=== PATIENT | female | born 1965 | race Caucasian/White ===

== ENCOUNTER 2019-10-19 16:12 | Emergency (ER) | payer SELFPAY ==
[2019-10-19 16:14] VITALS: BP 177/100; PULSE 101; RESP 17; TEMP 36.8; O2SAT 97; BMI 28.3
--- NOTE | 2019-10-19 16:27 | CTR_ITS ---
PROCEDURE INFORMATION: Exam: CT Maxillofacial Without Contrast Exam date and time: 10/19/2019 4:52 PM Age: 54 years old Clinical indication: Pain; Headache and other: RT eye pressure; Patient HX: RT side visual disturbance. Dizzy. INFANTE; Additional info: Sinusitis TECHNIQUE: Imaging protocol: Computed tomography images of the face without contrast. Total DLP: 442.13 mGy-cm Radiation optimization: All CT scans at this facility use at least one of these dose optimization techniques: automated exposure control; mA and/or kV adjustment per patient size (includes targeted exams where dose is matched to clinical indication); or iterative reconstruction. COMPARISON: No relevant prior studies available. FINDINGS: Orbits: Orbits are normal. Globes are unremarkable. Bones/joints: No acute fracture. Sinuses: There is a mucus retention cyst within the right maxillary sinus. Mastoid air cells: The mastoid air cells are clear. Soft tissues: Unremarkable. CT/CT sinus wo con* [id number] IMPRESSION: No acute abnormality. Radiation Dose CTDIVOL = (mGy): DLP = 442.13 (mGy-cm)
--- NOTE | 2019-10-19 16:27 | CTR_ITS ---
PROCEDURE INFORMATION: Exam: CT Head Without Contrast Exam date and time: 10/19/2019 4:52 PM Age: 54 years old Clinical indication: Pain; Headache not specified; Patient HX: Dizziness. Red eye- right TECHNIQUE: Imaging protocol: Computed tomography of the head without contrast. Total DLP: 753.64 mGy-cm Radiation optimization: All CT scans at this facility use at least one of these dose optimization techniques: automated exposure control; mA and/or kV adjustment per patient size (includes targeted exams where dose is matched to clinical indication); or iterative reconstruction. COMPARISON: No relevant prior studies available. FINDINGS: Brain: No acute intracranial hemorrhage, cerebral edema, or midline shift. Ventricles: No hydrocephalus. Bones/joints: No acute fracture. Sinuses: No acute sinusitis. Mastoid air cells: Visualized mastoid air cells are well aerated. Soft tissues: Unremarkable. CT/CT head wo con* [id number] IMPRESSION: No acute intracranial abnormality. Radiation Dose CTDIVOL = (mGy): DLP = 753.64 (mGy-cm)
--- NOTE | 2019-10-19 16:28 | ED_ITS ---
HPI - Neuro Symptoms/Deficit General: Chief Complaint: Neuro Symptoms/Deficit Stated Complaint: Right eye injury Time Seen by Provider: 10/19/19 16:14 History of Present Illness: HPI Narrative: Patient states that 1-2 days ago she bent over and suddenly felt a severe sharp pain in her right eye. The pain has been constant since that time. She does not complain of vision loss. She does have a conjunctival hemorrhage on the right. Patient states that she feels like there is a severe amount of pressure in the right side of her head Onset (ago): day(s) Review of Systems General: Reports: 10 or more systems reviewed and unremarkable except in HPI and below Eyes: Reports: eye discomfort and eye redness Neuro: Reports: lack of coordination PFSH ED PFSH: Social History Smoking and tobacco status: never smoked Physical Exam HENMT: COMMON NORMALS: normocephalic, head/scalp atraumatic, hearing grossly normal bilaterally and external nose normal HEAD & SCALP: normocephalic and atraumatic FACE & SINUS: sinus tenderness NOSE: external nose normal MOUTH: oral and palatal mucosa normal Eye: COMMON NORMALS: PERRL and EOMs intact bilaterally CONJUNCTIVA: Yes conjunctiva abnormal positive right subconjunctival hemorrhage PUPIL: Yes PERRL Course Vital Signs: Vital signs: Vital Signs Temperature 98.3 F 10/19/19 16:14 Pulse Rate 101 H 10/19/19 16:14 Respiratory Rate 17 10/19/19 16:14 Blood Pressure 177/100 10/19/19 16:14 Pulse Oximetry 97 10/19/19 16:14 MDM - Neuro Symptoms/Deficit MDM Narrative: Medical decision making narrative: CT scan of the head reveals no acute intracranial abnormalities. CT sinuses reveals a large retention cyst in the right maxillary sinus. Discharge Plan Discharge Patient Disposition: Home, Self-Care Clinical Impression: Mucous retention cyst of maxillary sinus, Subconjunctival hemorrhage of right eye Hypertension Qualifiers: Hypertension type: essential hypertension Qualified Code(s): I10 - Essential (primary) hypertension Condition: Stable Prescriptions: New Bactrim DS 800-160 mg tablet 1 tab PO BID 14 Days Qty: 28 RF: 0 prednisone 10 mg tablets,dose pack See Rx Instructions .ROUTE .COMPLEX Qty: 21 RF: 0 No Action Tylenol 325 mg Tablet 325 mg PO PRN RF: 0 Aspir-81 81 mg Tablet,Delayed Release (Dr/Ec) 81 mg PO DAILY RF: 0 Probiotic 4 cap PO BEDTIME RF: 0 Discharge Orders: Discharge Order (Routine); Ordered 10/19/19 Ordered By: Shai Moe Referrals: [facility] [Other] Aidan Tello NP [Primary Care Provider] - Patient Instructions: Sinusitis (ED) Coding Level of Care Code ED Prints And Drawings Curator for Chg Fwd Exam Expanded Problem Focused
--- NOTE | 2019-10-19 16:39 | PC.NURSE ---
Pt transported to CT via stretcher with furniture repair technician.
[2019-10-19 17:44] VITALS: BP 127/85; PULSE 95; RESP 17; O2SAT 95
== END 2019-10-19 17:44 | disposition home or self-care (01) ==
PROVIDERS: Emergency Provider Family Medicine; PCP Nurse Practitioner Family
DX: J34.1 Cyst and mucocele of nose and nasal sinus (principal); H11.31 Conjunctival hemorrhage, right eye; I10 Essential (primary) hypertension; H57.11 Ocular pain, right eye; Z79.82 Long term (current) use of aspirin
CPT/HCPCS: 12345; 70450; 70486; 99281

== ENCOUNTER → 2021-05-16 18:25 | Outpatient (BNVA) | payer SELFPAY | PROVIDERS: PCP Nurse Practitioner Family; Visit Provider Nurse Practitioner | DX: R39.9 Unspecified symptoms and signs involving the genitourinary system (principal) | CPT/HCPCS: 81000 ==

== ENCOUNTER → 2022-02-16 15:18 | Outpatient (BNVA) | payer SELFPAY | PROVIDERS: Visit Provider Family Medicine Adult Medicine | DX: N39.0 Urinary tract infection, site not specified (principal); N32.89 Other specified disorders of bladder; R31.9 Hematuria, unspecified; M54.50 Low back pain, unspecified | CPT/HCPCS: 81000 ==

== ENCOUNTER → 2022-03-27 15:01 | Outpatient (BNVA) | payer SELFPAY | PROVIDERS: PCP Family Medicine; Visit Provider Emergency Medicine | DX: R30.0 Dysuria (principal); N30.01 Acute cystitis with hematuria | CPT/HCPCS: 81000 ==

== ENCOUNTER → 2022-04-05 09:16 | Outpatient (BNVA) | payer SELFPAY | PROVIDERS: PCP Family Medicine Adult Medicine; Visit Provider Family Medicine Adult Medicine | DX: R30.0 Dysuria (principal); M54.50 Low back pain, unspecified; R31.9 Hematuria, unspecified; R53.83 Other fatigue; N39.3 Stress incontinence (female) (male); Z76.89 Persons encountering health services in other specified circumstances | CPT/HCPCS: 81000; 86592; 87491; 87591 ==

== ENCOUNTER 2022-05-05 20:28 | Emergency (ER) | payer SELFPAY ==
[2022-05-05 20:30] VITALS: BP 135/68; PULSE 83; RESP 16; TEMP 36.6; O2SAT 95; BMI 28.5
--- NOTE | 2022-05-05 20:49 | ED_ITS ---
HPI - Allergic Reaction General: Chief complaint: Allergic Reaction Stated complaint: possible spider bite Time Seen by Provider: 05/05/22 20:47 History of Present Illness: HPI narrative: Patient came in for concern of a small black spider bite to the right po stauricular area of the neck. Patient felt some tightening in her throat and some itching and came in to be evaluated. Patient had taken Benadryl on the way into the ER and felt better. Patient appears nontoxic. Patient appears in no pain. Review of Systems Const: Denies: fever(s) Card: Denies: chest pain Resp: Denies: dyspnea Skin/Breast: Reports: pruritus and new lesions PFS ED PFSH: Medical History (Updated 05/05/22 @ 20:57 by EFRAIN Maxwell) Benign tumor of breast Bladder spasm Chronic pelvic pain in female Depression Diverticulitis Dysuria Fatigue Hematuria History of IBS Low back pain Stress incontinence Surgical History H/O breast surgery Right - benign - 2010 History of hysterectomy Partial - still has one ovary. Family History Other CAD (coronary artery disease) Cancer Dementia Diabetes Hyperlipidemia Hypertension Psychiatric illness Stroke Denies family history of Clotting disorder Chronic kidney disease (CKD) Suicide Anesthesia complication Bleeding disorder Family history of premature coronary artery disease Lung disease Social History (Updated 04/05/22 @ 08:31 by Love Charles LPN) Smoking and tobacco status: never smoked Alcohol intake: current Alcohol intake frequency: holidays/special occasions only Alcohol type: wine Lives independently: Yes Household members: spouse Marital status: service: No Current occupational status: unemployed Current gender identity: Female Capri/Religious: Congregational Special capri needs: No Agree to transfusion: Yes Physical Exam Const: COMMON NORMALS: alert HENMT: COMMON NORMALS: Normal external nose present HEAD & SCALP: other (Small punctate lesion in the postauricular right side, no swelling or ecchy) NOSE: Normal external nose present MOUTH: Normal oral and palatal mucosa present Neck/C-Spine: COMMON NORMALS: full ROM and no lymphadenopathy Resp: COMMON NORMALS: normal respiratory effort and clear to auscultation bilaterally AUSCULTATION: clear to auscultation bilaterally Cardio: COMMON NORMALS: regular rate and regular rhythm RATE: regular rate RHYTHM: regular rhythm : COMMON NORMALS: Yes no CVA tenderness BLADDER/KIDNEY EXAM: Yes no CVA tenderness Back/Pelvis: COMMON NORMALS: no CVA tenderness Extremity: COMMON NORMALS: full ROM Neuro: SENSORIUM/ORIENTATION: Yes alert Skin: LESIONS: lesion noted (Postauricular, no significant redness or swelling.) Course Vital Signs: Vital signs: Vital Signs Temperature 97.8 F 05/05/22 20:30 Pulse Rate 83 05/05/22 20:30 Respiratory Rate 16 05/05/22 20:30 Blood Pressure 135/68 05/05/22 20:30 Pulse Oximetry 95 05/05/22 20:30 Oxygen Delivery Me thod 05/05/22 20:30 MDM - Allergic Reaction Medical Decision Making 56-year-old female comes in today with complaints of spider bite. On exam there is a punctate lesion behind the right ear. There is minimal redness and swelling. No induration. Vital signs are normal. Differential diagnosis includes but not limited to insect bite, anxiety, allergic reaction. No signs as allergic reaction or severe illness. Patient was given 10 mg of dexamethasone IM and recommended to use triamcinolone to the insect bite until clear. Patient reported understanding of care plan. Patient will use [id number] Benadryl otherwise for itching. Discharge Plan Discharge Patient Disposition: Home Clinical Impression: Insect bite of neck with local reaction Qualifiers: Encounter type: initial encounter Qualified Code(s): S10.96XA - Insect bite of unspecified part of neck, initial encounter Condition: Stable Prescriptions: New triamcinolone acetonide 0.1 % cream 1 applic topical BID Qty: 30 0RF No Action ciprofloxacin HCl 750 mg tablet 750 mg PO BID Qty: 10 0RF azithromycin 500 mg tablet 500 mg PO DAILY 5 Days Qty: 5 0RF oxybutynin chloride 15 mg tablet extended release 24hr 15 mg PO DAILY Qty: 30 5RF Tylenol 325 mg Tablet 325 mg PO PRN Discharge Orders: Discharge ED (Routine); Ordered 05/05/22 Ordered By: Anuj Ortiz Referrals: Ganesh Gay MD [Primary Care Provider] - Patient Instructions: Insect Bite or Sting (ED) Activity Restrictions/Additional Instructions: Use steroid cream 2 times a day to the insect bite until resolved. Use Benadryl 1 or 2 tablets every 4-6 hours as needed for itching or rash. The use of Benadryl can make you sleepy and you should not drive or operate heavy equipment that could harm yourself or others. Follow-up with primary care as needed. Return to ED for new concerns. Coding Level of Care Code ED Drafter Electronic for Alie Moreno
== END 2022-05-05 21:21 | disposition home or self-care (01) ==
PROVIDERS: Emergency Provider Nurse Practitioner Family; PCP Family Medicine Adult Medicine
DX: S10.96XA Insect bite of unspecified part of neck, initial encounter (principal); W57.XXXA Bitten or stung by nonvenomous insect and other nonvenomous arthropods, initial encounter
CPT/HCPCS: 99283

== ENCOUNTER → 2022-05-15 15:25 | Outpatient (BNVA) | payer SELFPAY | PROVIDERS: PCP Family Medicine Adult Medicine; Visit Provider Nurse Practitioner Family | DX: R31.9 Hematuria, unspecified (principal); N39.3 Stress incontinence (female) (male); N30.20 Other chronic cystitis without hematuria | CPT/HCPCS: 81003; 87086 ==

== ENCOUNTER → 2022-06-27 14:08 | Outpatient (BNVA) | payer SELFPAY | PROVIDERS: PCP Family Medicine Adult Medicine; Visit Provider Urology | DX: R31.9 Hematuria, unspecified (principal) | CPT/HCPCS: 81003 ==

== ENCOUNTER 2023-05-08 07:47 | Outpatient (CLI) | payer SELFPAY ==
--- NOTE | 2023-05-08 08:15 | MM_ITS ---
WS: [id number] BILATERAL 3D TOMOSYNTHESIS DIGITAL DIAGNOSTIC MAMMOGRAPHY WITH CAD CLINICAL INFORMATION: left breast pain/swelling HISTORY: LEFT breast pain and swelling COMPARISON: 2017 TECHNIQUE: Bilateral CC, MLO, and ML views. FINDINGS: Scattered fibroglandular densities bilaterally. Incidental punctate calcifications. No suspicious focal mass, asymmetry, calcifications, or architectural distortion. Ultrasound of the a ysabel of pain near the LEFT axilla is pending ULTRASOUND BREAST LEFT TECHNIQUE: Ultrasound left breast focused area of concern. CLINICAL INFORMATION: left breast pain/swelling FINDINGS: Ultrasound LEFT breast in the area of concern near the LEFT axilla. No evidence of drainable abscess or fluid collection. Ultrasound demonstrates a few prominent axillary lymph nodes largest measuring 1 .7 x 2.2 x 1.2 cm with preserved fatty hilum. No significant cortical thickening. This is likely reac tive considering history of cellulitis. No other abnormalities. If continued concern or enlarging LEFT lymph nodes this can be followed up with ultrasound. Otherwise return to annual screen mammography IMPRESSION: MM/[place] [id number] BI-RADS: 2-Benign FOLLOW UP: 1 Year Follow-up Recommend return to annual screening mammography.
--- NOTE | 2023-05-08 08:45 | US_ITS ---
WS: [id number] BILATERAL 3D TOMOSYNTHESIS DIGITAL DIAGNOSTIC MAMMOGRAPHY WITH CAD CLINICAL INFORMATION: left breast pain/swelling HISTORY: LEFT breast pain and swelling COMPARISON: 2017 TECHNIQUE: Bilateral CC, MLO, and ML views. FINDINGS: Scattered fibroglandular densities bilaterally. Incidental punctate calcifications. No suspicious focal mass, asymmetry, calcifications, or architectural distortion. Ultrasound of the a ysabel of pain near the LEFT axilla is pending ULTRASOUND BREAST LEFT TECHNIQUE: Ultrasound left breast focused area of concern. CLINICAL INFORMATION: left breast pain/swelling FINDINGS: Ultrasound LEFT breast in the area of concern near the LEFT axilla. No evidence of drainable abscess or fluid collection. Ultrasound demonstrates a few prominent axillary lymph nodes largest measuring 1 .7 x 2.2 x 1.2 cm with preserved fatty hilum. No significant cortical thickening. This is likely reac tive considering history of cellulitis. No other abnormalities. If continued concern or enlarging LEFT lymph nodes this can be followed up with ultrasound. Otherwise return to annual screen mammography IMPRESSION: US/US breast LT limited* [id number] BI-RADS: 2-Benign FOLLOW UP: 1 Year Follow-up Recommend return to annual screening mammography.
== END 2023-05-08 07:48 | disposition home or self-care (01) ==
LOC: RAD 07:48
PROVIDERS: PCP Family Medicine Adult Medicine; Visit Provider Emergency Medicine
DX: N64.4 Mastodynia; N63.32 Unspecified lump in axillary tail of the left breast
CPT/HCPCS: 76642; 77062; G0279

== ENCOUNTER 2024-06-24 10:17 | Outpatient (CLI) | payer SELFPAY ==
--- NOTE | 2024-06-24 10:20 | MM_ITS ---
WS: [id number] BILATERAL 3D TOMOSYNTHESIS DIGITAL DIAGNOSTIC MAMMOGRAPHY WITH CAD CLINICAL INFORMATION: MASTODYNIA HISTORY: LEFT breast lump COMPARISON: 2022 TECHNIQUE: Bilateral CC, MLO, and ML views. FINDINGS: Scattered fibroglandular densities bilaterally. Palpable markers LEFT breast and LEFT axilla. No defi nite underlying mammographic abnormalities. Ultrasound of these areas are pending. RIGHT breast appea rs unchanged. ULTRASOUND BREAST LEFT TECHNIQUE: Ultrasound left breast focused area of concern. CLINICAL INFORMATION: MASTODYNIA COMPARISON: 2022 FINDINGS: Ultrasound LEFT breast in the LEFT axilla and upper outer quadrant in the area of concern. Ultrasound in the area of concern 2 o'clock position demonstrates normal underlying parenchymal tissue. Ultrasound LEFT axilla demonstrates multiple lymph nodes the largest measures 2.1 x 2.7 cm with persi stent fatty hilum. No significant cortical thickening. These are similar to 2023 and probably benign. This could be further evaluated with ultrasound-guided biopsy if persistent concern or 6-month follo w-up ultrasound. MM/MM diag tomosynthesis [id number] IMPRESSION: DENSITY: There are scattered areas of fibroglandular density. BI-RADS: 3 - Probably Benign. FOLLOW UP: 6 Month Follow-up 6-month follow-up LEFT breast ultrasound versus biopsy LEFT axillary lymph node discussed above
== END 2024-06-24 10:18 | disposition home or self-care (01) ==
LOC: RAD 10:19
PROVIDERS: PCP Family Medicine Adult Medicine; Visit Provider Advanced Practice Midwife
DX: R92.323 Mammographic fibroglandular density, bilateral breasts (principal); N64.4 Mastodynia
CPT/HCPCS: 76642; 77062; G0279

== ENCOUNTER → 2024-07-09 09:02 | Outpatient (BNVA) | payer SELFPAY | DX: R92.8 Other abnormal and inconclusive findings on diagnostic imaging of breast (principal); R73.09 Other abnormal glucose | CPT/HCPCS: 80053; 80061; 83036; 85025 ==

== ENCOUNTER 2024-08-04 12:21 | Outpatient (CLI) | payer SELFPAY ==
--- NOTE | 2024-08-04 | US_ITS ---
WS: [id number] ULTRASOUND-GUIDED LEFT AXILLARY BIOPSY/lymph node HISTORY: Minimally abnormal LEFT lymph node. No breast abnormality. COMPARISON: 06/24/2024 Procedure, risks and complications are explained to the patient. Medications are reviewed. Consent is obtained. The lymph node in the LEFT axilla is localized with ultrasound. Skin is cleansed with ChloraPrep and anesthetized with 1% buffered lidocaine. Small dermatome is made. Under sterile conditions mass is bi opsied with an 18-gauge Achieve needle. Multiple core biopsies are performed. Material placed in form randolph and sent to pathology for review. No complications encountered. Breast tissue marker (Biz In A Box JV ultrasound enhanced ribbon): Single. Patient left the radiology suite with no complications. Patient is [place] [facility] [facility] with any concerns. US/US biopsy lymph node [id number] IMPRESSION: 1. Uncomplicated core needle biopsy LEFT axillary lymph node which is minimall y abnormal. 2. PATHOLOGY: Partially disrupted fragments of benign-appearing lymph node tis marjorie. Very mild nonspecific paracortical hyperplasia and sinus histiocytosis. No rmal thickness of the lymph node capsule. No necrosis or granulomatous inflamma tion. No malignancy. RECOMMENDATION: 6-month RIGHT axillary ultrasound follow-up. Ultrasound and pathology findings are concordant. The lymph node had a normal c ortical thickness by ultrasound.
--- NOTE | 2024-08-04 13:15 | US_ITS ---
WS: [id number] ULTRASOUND-GUIDED LEFT AXILLARY BIOPSY/lymph node HISTORY: Minimally abnormal LEFT lymph node. No breast abnormality. COMPARISON: 06/24/2024 Procedure, risks and complications are explained to the patient. Medications are reviewed. Consent is obtained. The lymph node in the LEFT axilla is localized with ultrasound. Skin is cleansed with ChloraPrep and anesthetized with 1% buffered lidocaine. Small dermatome is made. Under sterile conditions mass is bi opsied with an 18-gauge Achieve needle. Multiple core biopsies are performed. Material placed in form randolph and sent to pathology for review. No complications encountered. Breast tissue marker (Bard ultrasound enhanced ribbon): Single. Patient left the radiology suite with no complications. Patient is instructed to return to [facility] [place] or [facility] with any concerns.
== END 2024-08-04 12:22 | disposition home or self-care (01) ==
LOC: RAD 12:23
DX: R59.0 Localized enlarged lymph nodes (principal); D76.3 Other histiocytosis syndromes
CPT/HCPCS: 19083; 38505; 76942; 88305

== ENCOUNTER 2025-02-01 12:25 | Outpatient (CLI) | payer SELFPAY ==
--- NOTE | 2025-02-01 12:37 | US_ITS ---
WS: [id number] ULTRASOUND LEFT BREAST/axilla HISTORY: 6 month follow-up lt axilla node biopsy. COMPARISON: 06/24/2024 TECHNIQUE: 2-D and Doppler. The identified is a lymph node in the RIGHT axilla that was previously biopsied. This lymph node contains a fatty hilum but no cortical thickening. There are additional smaller similar lymph nodes in the LEFT axilla. US/US breast LT limited* [id number] IMPRESSION: BI-RADS: 2- Benign FOLLOW-UP: See Report Stable LEFT axillary lymph node status post biopsy 6 months ago. No additional follow-up necessary. Return to annual screening mammography.
== END 2025-02-01 12:26 | disposition home or self-care (01) ==
LOC: RAD 12:26
PROVIDERS: Visit Provider Advanced Practice Midwife
DX: N64.4 Mastodynia (principal)
CPT/HCPCS: 76641; 76642

== ENCOUNTER → 2025-02-03 15:26 | Outpatient (BNVA) | payer SELFPAY | DX: J84.10 Pulmonary fibrosis, unspecified (principal) | CPT/HCPCS: 71046; 80053; 80061; 83036 ==

== ENCOUNTER → 2025-02-07 14:41 | Outpatient (BNVA) | payer SELFPAY | DX: R59.0 Localized enlarged lymph nodes (principal) | CPT/HCPCS: 85025; 85651; 86140; 86664; 86665 ==

== ENCOUNTER 2025-02-09 09:36 | Outpatient (CLI) | payer SELFPAY ==
[2025-02-09 10:00] VITALS: BMI 27.4
--- NOTE | 2025-02-09 10:11 | ECG_ITS ---
[facility] Test Date: 2025-02-09 Pat Name: Ree Lisa Department: Room: Gender: Female Solutions Consultant: : 1965 Requested By: Michela Talamantes Order Number: [id number] Staley MD: REINALDO CALZADA Interpretive Statements Lung unchanged pre/post procedure; Intraprocedure shortess of breath; Symptoms resoled by discharge EXERCISE DATA: The patient was exercised by Cu[place] protocol. Baseline heart rate was 83 beats per minute. Baseline blood pressure was 128/80 millimeters of mercury. Target heart rate was 162 beats per minute. Maximum heart rate achieved was 155, which was 95% of the target heart rate. Maximum blood pressure was 185/83 millimeters of mercury. Total exercise time was 5 minutes. Maximum METs achieved was 7.0, maximum VO2 was 24.5. The reason for ending the test was extreme effort achieved. The patient complained of shortness of breath during the stress test, which then resolved at the end of the test. ELECTROCARDIOGRAM: BASELINE: Showed sinus rhythm, normal axis, no significant ST-T changes at the baseline noted. EXERCISE: At the peak exercise level, no significant ST-T changes suggestive of ischemia noted. RECOVERY: During the recovery period, heart rate dropped appropriately. No significant ST-T changes in the recovery suggestive of ischemia noted. CONCLUSION: 1. Exercise capacity low 2. Heart rate response was appropriate. 3. Blood pressure response was appropriate. 4. Symptoms not suggestive of ischemia. 5. Electrocardiogram portion of the stress test was not suggestive of ischemia. 6. Nuclear scan will be documented separately. Electronically Signed On 02-23-2025 19:50:51 CDT by REINALDO CALZADA [email or web address]
--- NOTE | 2025-02-09 10:12 | NMCV_ITS ---
NM delvin perf SPECT r/s* [id number] Ree Lisa Age: 59 Gender: F : 1965 Exam Date: 02/09/2025 11:17 Ordering Phys: Michela Talamantes NP Technologist: YOSELYN Mtz Exam Location: [facility] [address] Indications: CP STRESS TEST Please [facility] IMAGE PROTOCOL Rest/Stress 1 Radiopharmaceutical Dose (mCi) Administration Site Administered by Rest: Tc-99m 10.6 IV Tiffanie Palm, TOBACCO DRIER OPERATOR Sestamibi Stress:Tc-99m 32.6 IV Tiffanie Palm, TOBACCO DRIER OPERATOR Sestamibi Rest: 09-Feb-2025 60 Discovery 630 Stress: 09-Feb-2025 15 Discovery 630 Radiopharmaceutical was injected at 90 % maximum heart rate.images obtained in supine and prone position. SPECT RESULTS Technical Quality: Good Raw Data Analysis: Normal Image Corrections: No attenuation or motion correction applied Summed Stress Score: 3 Summed Rest Score: 5 Summed Difference Score: 0 PERFUSION FINDINGS SPECT images demonstrate homogeneous tracer distribution throughout the myocardium. FUNCTIONAL RESULTS (calculated via Gated SPECT) Stress Image LV EF (%): 74 Stress EDV (mL):54 TID: 0.96 Stress ESV (mL):14 FUNCTIONAL FINDINGS: There is normal left ventricular systolic function. IMPRESSIONS Myocardial perfusion imaging is normal. Brett Briggs MD (Electronically Signed) Final Date: 09 February 2025 16:07 S
[2025-02-09 12:19] VITALS: BP 132/68; PULSE 81
== END 2025-02-09 09:37 | disposition home or self-care (01) ==
LOC: CDL 09:37
DX: R06.02 Shortness of breath (principal); R07.89 Other chest pain
CPT/HCPCS: 36415; 78452; 93017; A9500